=== PATIENT | male | born 1960 | race Caucasian/White ===

== ENCOUNTER → 2023-11-08 10:56 | Outpatient (REF) | payer OTHER, SELFPAY | LOC: RAD 10:56 | PROVIDERS: ATTENDING PHYSICIAN Surgery; FAMILY PHYSICIAN Internal Medicine | DX: C20 Malignant neoplasm of rectum (principal) | CPT/HCPCS: 70030; 71250 ==

== ENCOUNTER → 2023-11-08 11:37 | Outpatient (REF) | payer OTHER, SELFPAY | LOC: MRI 3T 11:37 | PROVIDERS: ATTENDING PHYSICIAN Surgery | DX: C20 Malignant neoplasm of rectum (principal) | CPT/HCPCS: 70030; 72197; A9575 ==